=== PATIENT | male | born 1940 | race Caucasian/White ===

== ENCOUNTER 2017-06-06 08:28 | Day surgery (SDC) | payer OTHER, MEDICARE ==
[~2017-06-06] VITALS: Ht 168.9 cm; Wt 76.2 kg
[~2017-06-06 08:28] MED LIST: ASPIR-LOW81 MG PO; CARVEDILOL3.125 MG PO; LISINOPRIL10 MG PO; MULTIVITAMIN1 EAC2 PO; NITROGLYCERIN0.4 MG SL; ROSUVASTATIN CA10 MG PO
== END 2017-06-06 16:50 | disposition home or self-care (01) ==
LOC: CATH 08:28
DX: I25.119 Atherosclerotic heart disease of native coronary artery with unspecified angina pectoris (principal); I71.9 Aortic aneurysm of unspecified site, without rupture; I44.7 Left bundle-branch block, unspecified; I10 Essential (primary) hypertension; E78.5 Hyperlipidemia, unspecified; Z79.82 Long term (current) use of aspirin
CPT/HCPCS: C1760; C1769; C1887; C1894; J1200; J1644; J2250; J7040